=== PATIENT | male | born 1945 | race Caucasian/White ===

== ENCOUNTER → 2020-07-26 15:49 | Outpatient (CLI) | payer MEDICARE, SELFPAY ==
[2020-07-26] MEDS: COVID-19 VACC #1, MRNA(MOD) 100 MCG/0.5 ML VIAL IM (15:53)
== END ==
PROVIDERS: Family Provider Family Medicine; PCP Family Medicine; Visit Provider Internal Medicine
DX: Z23 Encounter for immunization (principal)
CPT/HCPCS: 0011A; 91301

== ENCOUNTER → 2020-08-23 15:29 | Outpatient (CLI) | payer MEDICARE, SELFPAY ==
[2020-08-23] MEDS: COVID-19 VACC #2, MRNA(MOD) 100 MCG/0.5 ML VIAL IM (15:42)
== END ==
PROVIDERS: Family Provider Family Medicine; PCP Family Medicine; Visit Provider Internal Medicine
DX: Z23 Encounter for immunization (principal)
CPT/HCPCS: 0012A; 91301

== ENCOUNTER → 2023-09-12 09:57 | Outpatient (CLI) | payer OTHER, SELFPAY ==
--- NOTE | 2023-09-12 09:59 | DI.CT.S_ITS ---
PROCEDURE: CT ABDOMEN PELVIS W CON INDICATIONS: Constipation, Abnormal weight loss TECHNIQUE: After the administration of intravenous contrast, axial sections acquired from the lung bases to the pubic symphysis. Coronal and sagittal reformats were performed. For radiation dose reduction, the following was used: automated exposure control, adjustment of mA and/or kV according to patient size. COMPARISON: [facility], CT, KIDNEY/ URETER/BLADDER, 05/27/2016, 12:17. FINDINGS: Image quality: Diagnostic. Lower Chest: Distal esophageal diverticulum or small hiatal hernia. Small amount of oral contrast in the distal esophagus. ABDOMEN: Liver: No solid mass. Gallbladder: Decompressed. Biliary ducts: No biliary dilation. Pancreas: No ductal dilation. Spleen: Size is within normal limits. Adrenal Glands: No adrenal nodules. Kidneys and Ureters: No hydronephrosis. No solid mass. No complex renal cystic lesion which requires follow up. Several peripelvic cysts. Largest exophytic simple cyst on the left measures 6.5 cm. Stomach and Bowel: No mass identified. Prominent stool in the colon. Diverticulosis. The appendix is not dilated. Peritoneum: No abnormal intraperitoneal fluid. No free air. Ventral Wall: No significant ventral hernia. Abdominal Nodes: No retroperitoneal or mesenteric adenopathy by size criteria. Vessels: Aorta and inferior vena cava are normal in size. PELVIS: Pelvic Organs: Vasectomy clips. Prostatomegaly. Bladder: Distended. No stone. Pelvic Nodes: No enlarged lymph nodes. Miscellaneous: No inguinal hernias are seen. Bones: No aggressive osseous abnormality. IMPRESSION: 1. No mass identified. No adenopathy. 2. Prominent stool in the colon. 3. Small distal esophageal diverticulum. Less likely hiatal hernia. There is fluid in the distal esophagus which could be due to esophageal dysmotility or gastroesophageal reflux. Dictated by: Dave Cool M.D. on 09/12/2023 at 13:07 Approved by: Dave Cool M.D. on 09/12/2023 at 13:36
== END ==
LOC: CT 09:58
PROVIDERS: Family Provider Family Medicine; PCP Family Medicine; Referring Provider Family Medicine; Visit Provider Family Medicine
DX: K59.00 Constipation, unspecified (principal); K22.5 Diverticulum of esophagus, acquired; K57.90 Diverticulosis of intestine, part unspecified, without perforation or abscess without bleeding; R63.4 Abnormal weight loss; N28.1 Cyst of kidney, acquired; N40.0 Benign prostatic hyperplasia without lower urinary tract symptoms
CPT/HCPCS: 74177; Q9967

== ENCOUNTER 2023-09-26 13:27 | Day surgery (SDC) | payer OTHER, SELFPAY ==
[2023-09-26 14:16] VITALS: BP 165/88; PULSE 75; RESP 15; TEMP 36.6; O2SAT 97
[2023-09-26] MEDS: LACTATED RINGERS 1,000 ML 42 ML IV (14:26)
--- NOTE | 2023-09-26 16:56 | P.OP.COLON_ITS ---
Operative Date/Time/Diagnoses Date of procedure: 09/26/23 Time of procedure: 16:56 Pre-op diagnosis: Altered bowel function Procedure & Clinicians Study performed: Diagnostic colonoscopy Same procedure as scheduled: Yes Indications: 78-year-old man history of colonic polyps with unintentional weight loss associated with altered bowel function. Surgeon: Rivera Locke Procedure Notes Procedure in detail: The history and physical was performed/updated and the patient is ASA class is 3. The procedure was discussed in detail with the patient. Potential risks complications including infection, bleeding, missed diagnosis, perforation, need for surgery, and were explained. Their questions were answered and informed consent was obtained. Patient was brought to the procedure room and placed standard monitoring equipment. The patient's vital signs were monitored continuously throughout the entire procedure. Prior to starting time-out was performed. The patient was placed in the left lateral recumbent position. Procedural sedation was administered by anesthesia. Examination began with a thorough inspection of the perianal area there was no evidence of fissures, fistulae, external hemorrhoids or cutaneous malignancy. The colonoscopy scope was then placed into the anal canal and was advanced to the cecum, which was identified by the ileocecal valve, the appendiceal orifice and the confluence of the taenia. The scope was then slowly withdrawn examining colon thoroughly in all directions, irrigating it of any residual stool. The scope was retroflexed within the rectum The patient tolerated the procedure well. They will be discharged once criteria are met. The prep was of poor quality. The withdrawl time was 7 minutes. FINDINGS * No masses or polyps. * Extensive diverticulosis of the descending colon Specimen(s): none sent Impression: Extensive diverticulosis Post-procedure Recommendations: High fiber diet Disposition: same day surgery
[2023-09-26 16:59] VITALS: BP 103/70; PULSE 63; RESP 12; TEMP 36.1; O2SAT 92
[2023-09-26 17:03] VITALS: BP 106/71; PULSE 58; RESP 15; O2SAT 93
[2023-09-26 17:07] VITALS: BP 117/76; PULSE 60; RESP 18; O2SAT 97
[2023-09-26 17:12] VITALS: BP 117/76; PULSE 63; RESP 12; O2SAT 93
[2023-09-26 17:19] VITALS: BP 126/74; PULSE 62; RESP 16; O2SAT 96
== END 2023-09-26 17:31 | disposition home or self-care (01) ==
PROVIDERS: Family Provider Family Medicine; PCP Family Medicine; Referring Provider Surgery; Visit Provider Surgery
PROC: 0DJD8ZZ Inspection of Lower Intestinal Tract, Via Natural or Artificial Opening Endoscopic (ICD-10-PCS; CPT 45378; principal; 2023-09-26 14:15)
DX: R19.4 Change in bowel habit (principal); R63.4 Abnormal weight loss; K57.30 Diverticulosis of large intestine without perforation or abscess without bleeding; Z86.010 Personal history of colon polyps
CPT/HCPCS: 45378; J2704